=== PATIENT | female | born 1985 | race Two or more races ===

== ENCOUNTER 2017-05-14 07:08 | Emergency (ER) | payer MEDICAID, OTHER ==
[~2017-05-14] VITALS: Ht 157.5 cm; Wt 40.8 kg
[2017-05-14 07:52] VITALS: BP 85/63
[2017-05-14] MEDS ORDERED: SODIUM CHLORIDE 0.9% 1,000 ML IV ONE ×2 (08:42)
[2017-05-14] MEDS ORDERED: LORazepam 2MG/ML-1ML VIAL IV ONE (10:15)
== END 2017-05-14 11:18 | disposition home or self-care (01) ==
LOC: EDUNIT# 07:08 → ER 07:08
DX: R56.9 Unspecified convulsions (principal); Z86.73 Personal history of transient ischemic attack (TIA), and cerebral infarction without residual deficits; Z90.89 Acquired absence of other organs
CPT/HCPCS: 71010; 82962; 96361; 96374; 99285; J7030

== ENCOUNTER 2017-09-22 10:48 | Emergency (ER) | payer MEDICAID ==
[~2017-09-22] VITALS: Ht 162.6 cm; Wt 43.7 kg
[2017-09-22 14:58] VITALS: BP 102/68
== END 2017-09-22 15:11 | disposition home or self-care (01) ==
LOC: ER 10:53
DX: S86.819A Strain of other muscle(s) and tendon(s) at lower leg level, unspecified leg, initial encounter (principal); Z88.1 Allergy status to other antibiotic agents; W19.XXXA Unspecified fall, initial encounter; Y93.89 Activity, other specified; Y99.8 Other external cause status; Y92.89 Other specified places as the place of occurrence of the external cause
CPT/HCPCS: 72170; 73562

== ENCOUNTER 2017-11-14 21:35 | Inpatient (IN) | payer MEDICAID ==
[~2017-11-14] VITALS: Ht 170.2 cm; Wt 45.4 kg
[2017-11-14] MEDS ORDERED: LORazepam 2MG/ML-1ML VIAL IV ONE (22:00)
[2017-11-14 22:39] LABS: Basophils # (auto) 0 uL; Basophils % (auto) 0.6 % (0.0-2.0); Eosinophils # (auto) 0.1 uL; Eosinophils % (auto) 0.8 % (0.0-7.0); Hemoglobin 13.2 g/dL (12.2-16.2); Lymphocytes # (auto) 0.8 uL; Monocytes # (auto) 0.4 uL; Monocytes % (auto) 4.6 % (0.0-12.0); Neutrophils # (auto) 6.5 uL; Nucleated Red Blood Cells % 0.1 %; Red Blood Cells 4.08 10^6/uL (4.0-5.20); White Blood Cell 7.7 10^3/uL (4.4-10.8)
[2017-11-14 22:40] LABS: Hematocrit 38.4 % (36.0-46.0); Mean Corpuscular Hemoglobin 32.3 pg (28.0-32.0); Mean Corpuscular Hgb Conc. 34.3 g/dL (32.0-36.0); Mean Corpuscular Volume 93.9 fL (80.0-100.0); Platelet Count (auto) 334 10^3/uL (140-450); Red Cell Distribution Width 12.8 % (11.8-14.3)
[2017-11-14 23:03] LABS: INR 1.07 (0.9-1.15); Partial Thromboplastin Time 26.4 sec (23.78-33.04); Prothrombin Time 11.4 sec (9.27-12.13)
[2017-11-14 23:04] LABS: Albumin 3.5 g/dL (3.4-5.0); BUN/Creatinine Ratio 12.7; Bilirubin, Total 0.2 mg/dL (0.2-1.0); Calcium 9.5 mg/dL (8.5-10.1); Total Protein 7.9 g/dL (6.4-8.2)
[2017-11-14 23:09] LABS: Potassium 2.9 mmol/L (3.5-5.1)
[2017-11-14] MEDS ORDERED: POTASSIUM CHL 20 Meq TABLET PO ONE ×2 (23:24→23:30)
[2017-11-14] MEDS ORDERED: POTASSIUM CHL 20MEQ/100ML 100 ML IV SCH (23:30)
[2017-11-14] MEDS ORDERED: POTASSIUM CHL 10% (20 MEQ/15ML) 15ml ORAL SOLN ONE (23:37)
[2017-11-14] MEDS ORDERED: POTASSIUM CHL 10% (20 MEQ/15ML) 15ml ORAL SOLN GT ONE (23:45)
[2017-11-15] MEDS ORDERED: TEMAZEPAM 15 MG CAP PO PRN
[2017-11-15] MEDS ORDERED: ONDANSETRON HCL 4 MG/2 ML VIAL IV PRN
[2017-11-15] MEDS ORDERED: HYDROcodone-ACET 5/325MG TAB PO PRN
[2017-11-15] MEDS ORDERED: NITROGLYCERIN 0.4 MG SL TAB SL PRN
[2017-11-15] MEDS ORDERED: ACETAMINOPHEN 325 MG TAB PO PRN
[2017-11-15] MEDS ORDERED: MORPHINE SULFATE 4 MG/ML SYR/VIAL IV PRN
[2017-11-15 02:05] VITALS: BP 100/75
[2017-11-15 02:37] VITALS: BP 100/75
[2017-11-15] MEDS ORDERED: KEP500T PO (03:46)
[2017-11-15] MEDS ORDERED: CEFT1INJ IV (03:46)
[2017-11-15] MEDS ORDERED: CHL4PW GT (03:46)
[2017-11-15] MEDS ORDERED: METR500T PO (03:46)
[2017-11-15] MEDS ORDERED: POTA20TA53 PO (03:46)
[2017-11-15] MEDS ORDERED: LEVO50TA7 PO (03:46)
[2017-11-15] MEDS ORDERED: PANC12002 PO (03:46)
[2017-11-15] MEDS ORDERED: MAGN400T5 PO (03:46)
[2017-11-15] MEDS ORDERED: METR500T14 PO (03:46)
[2017-11-15] MEDS ORDERED: CHOL20007 PO (03:46)
[2017-11-15] MEDS ORDERED: LANS30CA63 PO (03:46)
[2017-11-15] MEDS ORDERED: CITA10TA70 PO (03:46)
[2017-11-15] MEDS ORDERED: HYDR200T36 PO (03:46)
[2017-11-15] MEDS ORDERED: [UNRECOGNIZED DRUG - CODE] IV (03:46)
[2017-11-15] MEDS ORDERED: FERR-20 PO (03:46)
[2017-11-15] MEDS ORDERED: CLON1TAB3 PO (03:46)
[2017-11-15] MEDS ORDERED: ZINC TOP (03:46)
[2017-11-15] MEDS ORDERED: ASCO-22 PO (03:46)
[2017-11-15] MEDS ORDERED: MIDO5TAB16 PO (03:54)
[2017-11-15 05:15] VITALS: BP 99/68
[2017-11-15] MEDS ORDERED: LEVOTHYROXINE SODIUM 50 MCG TAB PO SCH (07:00)
[2017-11-15 08:22] LABS: Basophils # (auto) 0 uL; Basophils % (auto) 0.4 % (0.0-2.0); Eosinophils # (auto) 0.1 uL; Eosinophils % (auto) 1.6 % (0.0-7.0); Hematocrit 38.7 % (36.0-46.0); Hemoglobin 13.1 g/dL (12.2-16.2); Lymphocytes % (auto) 13.9 % (10.0-50.0); Mean Corpuscular Hgb Conc. 33.9 g/dL (32.0-36.0); Mean Corpuscular Volume 94.5 fL (80.0-100.0); Monocytes # (auto) 0.4 uL; Neutrophils # (auto) 5.7 uL; Neutrophils % (auto) 78.1 % (37.0-80.0); Nucleated Red Blood Cells % 0.1 %; Platelet Count (auto) 314 10^3/uL (140-450); Red Cell Distribution Width 12.8 % (11.8-14.3); White Blood Cell 7.3 10^3/uL (4.4-10.8)
[2017-11-15 08:41] LABS: Albumin 3.5 g/dL (3.4-5.0); BUN/Creatinine Ratio 11.6; Calcium 9.7 mg/dL (8.5-10.1); Potassium 3.8 mmol/L (3.5-5.1)
[2017-11-15 08:43] LABS: Bilirubin, Total 0.3 mg/dL (0.2-1.0); Total Protein 8.2 g/dL (6.4-8.2)
[2017-11-15 09:00] VITALS: BP 102/72
[2017-11-15] MEDS ORDERED: LACOSAMIDE 50 MG TAB PO SCH (10:00)
[2017-11-15] MEDS ORDERED: LEVETIRACETAM 500 MG TAB PO SCH (10:00)
[2017-11-15] MEDS ORDERED: ENOXAPARIN SOD 40 MG/0.4 ML SYRINGE SC SCH (10:00)
[2017-11-15] MEDS ORDERED: FAMOTIDINE 20 MG TAB PO SCH (10:00)
[2017-11-15 13:00] VITALS: BP 95/68
[2017-11-15] MEDS ORDERED: LORazepam 2MG/ML-1ML VIAL IV PRN (13:45)
[2017-11-15] MEDS ORDERED: SODIUM CHLORIDE 0.9% 1,000 ML IV SCH (14:45)
[2017-11-15 17:00] VITALS: BP 96/69
== END 2017-11-15 22:00 | disposition left against medical advice (07) | DRG 53 ==
LOC: ER 21:35 → EDBD 21:35 → TELE 21:36 → TELE-WESTW 11-15 02:00
PROVIDERS: ADMIT Nurse Practitioner; ATTEND Internal Medicine
PROC: 02HV33Z Insertion of Infusion Device into Superior Vena Cava, Percutaneous Approach (ICD-10-PCS; principal; 2017-11-15)
DX: G40.409 Other generalized epilepsy and epileptic syndromes, not intractable, without status epilepticus (principal); Z93.0 Tracheostomy status; F01.50 Vascular dementia, unspecified severity, without behavioral disturbance, psychotic disturbance, mood disturbance, and anxiety; E03.9 Hypothyroidism, unspecified; E87.6 Hypokalemia; F41.1 Generalized anxiety disorder; Z53.21 Procedure and treatment not carried out due to patient leaving prior to being seen by health care provider; R26.9 Unspecified abnormalities of gait and mobility; G47.00 Insomnia, unspecified; Z93.1 Gastrostomy status; Z79.899 Other long term (current) drug therapy; Z86.73 Personal history of transient ischemic attack (TIA), and cerebral infarction without residual deficits; Z93.3 Colostomy status; Z95.2 Presence of prosthetic heart valve; Z88.1 Allergy status to other antibiotic agents
CPT/HCPCS: 36415; 70450; 71045; 80053; 84484; 85025; 85610; 85730; 93005; 96361; 96374; J3480

== ENCOUNTER 2018-03-04 16:06 | Emergency (ER) | payer MEDICAID ==
[~2018-03-04] VITALS: Ht 157.5 cm; Wt 46.3 kg
[~2018-03-04 16:06] MED LIST: ASCO-22 PO; CEFT1INJ IV; CHL4PW GT; CHOL20007 PO; CITA10TA70 PO; CLON1TAB4 PO; FERR-20 PO; HYDR200T36 PO; KEP500T PO; LANS30CA63 PO; LEVO50TA7 PO; MAGN400T5 PO; METR500T PO; METR500T14 PO; MIDO5TAB PO; PANC12002 PO; POTA20TA53 PO; ZINC TOP; [UNRECOGNIZED DRUG - CODE] IV
[2018-03-04] MEDS: LORazepam 2MG/ML-1ML VIAL IV ONE (17:25)
[2018-03-04 17:32] VITALS: BP 115/80
== END 2018-03-04 17:37 | disposition home or self-care (01) ==
LOC: ER 16:10
DX: R56.9 Unspecified convulsions (principal); M32.9 Systemic lupus erythematosus, unspecified; Z86.73 Personal history of transient ischemic attack (TIA), and cerebral infarction without residual deficits
CPT/HCPCS: 70450; 93005; 96374; 99284; J2060

== ENCOUNTER 2023-07-03 09:02 | Emergency (ER) | payer MEDICARE, MEDICAID ==
[~2023-07-03] VITALS: Ht 162.6 cm; Wt 94.1 kg
[~2023-07-03 09:02] MED LIST changes: -ASCO-22 PO; +ASCO500T16 PO; +CITA10TA5 PO; -CITA10TA70 PO; +CLON-853 PO; -CLON1TAB4 PO; -FERR-20 PO; +FERR325T24 PO; +LANS30CA57 PO; -LANS30CA63 PO; +MAGN400T40 PO; -MAGN400T5 PO; +METR-344 PO; -METR500T14 PO; -MIDO5TAB PO; +MIDO5TAB4 PO; +POTA-220 PO; -POTA20TA53 PO
[2023-07-03 09:53] VITALS: O2SAT 98
[2023-07-03 10:30] LABS: Basophils # (auto) 0 10 ^3/uL (0-0.2); Basophils % (auto) 0.2 % (0.0-2.0); Eosinophils # (auto) 0.1 10 ^3/uL (0-0.8); Eosinophils % (auto) 0.9 % (0.0-7.0); Hematocrit 42.7 % (36.0-46.0); Hemoglobin 14.7 g/dL (12.2-16.2); Lymphocytes # (auto) 1.3 10 ^3/uL (0.4-5.4); Lymphocytes % (auto) 20.5 % (10.0-50.0); Mean Corpuscular Hemoglobin 32.2 pg (28.0-32.0); Mean Corpuscular Hgb Conc. 34.5 g/dL (32.0-36.0); Mean Corpuscular Volume 93.3 fL (80.0-100.0); Monocytes # (auto) 0.3 10 ^3/uL (0-1.3); Monocytes % (auto) 5.4 % (0.0-12.0); Neutrophils # (auto) 4.6 10 ^3/uL (1.6-8.6); Nucleated Red Blood Cells % 0.1 %; Red Blood Cells 4.58 10^6/uL (4.0-5.20); Red Cell Distribution Width 12.6 % (11.8-14.3); White Blood Cell 6.4 10^3/uL (4.4-10.8)
[2023-07-03 10:46] LABS: Chloride 104 mmol/L (98-107); Potassium 4.1 mmol/L (3.5-5.1); Sodium 139 mmol/L (136-145)
[2023-07-03 10:47] LABS: Anion Gap 5 (5-15); Calcium 9.5 mg/dL (8.5-10.1); Carbon Dioxide 30 mmol/L (20-30)
[2023-07-03 10:52] LABS: BUN/Creatinine Ratio 10.8 (10.0-20.0); Blood Urea Nitrogen 9 mg/dL (9-23); Glucose 106 mg/dL (74-106)
[2023-07-03] MEDS ORDERED: levETIRAcetam 1000 mg/100ml 100 ML IV ONE (11:15)
[2023-07-03] MEDS ORDERED: SODIUM CHLORIDE 0.9% 1,000 ML IV ONE (11:15)
[2023-07-03] MEDS ORDERED: LORazepam 2MG/ML-1ML VIAL IV ONE (11:15)
[2023-07-03 13:51] LABS: Urine Epithelial Cast None Seen /hpf (<5)
[2023-07-03 14:07] LABS: Urine Bacteria NONE SEEN /hpf (None Seen); Urine Blood Negative /uL (Negative); Urine Clarity Clear (Clear); Urine Protein, UAD TRACE (Negative); Urine Urobilinogen Normal (Negative); Urine WBC <1 /hpf (0 - 5)
[2023-07-03 14:08] LABS: Urine Color Straw (Yellow)
[2023-07-03 14:29] LABS: Amphetamine Screen, Urine Neg (NEGATIVE); Barbiturate Scree,Urine Neg (NEGATIVE); Benzodiazephine Screen, Urine Pos (NEGATIVE); Cannabinoid Screen, Urine Neg (NEGATIVE); Cocaine Screen, Urine Neg (NEGATIVE); Opiate Scree,Urine Neg (NEGATIVE); Phencyclidine Screen, Urine Neg (NEGATIVE)
[2023-07-03 15:00] VITALS: BP 112/77; PULSE 77; RESP 14; O2SAT 99
== END 2023-07-03 15:12 | disposition home or self-care (01) ==
LOC: EDBD 09:02 → ER 09:02
DX: G40.909 Epilepsy, unspecified, not intractable, without status epilepticus (principal); R10.2 Pelvic and perineal pain; M32.9 Systemic lupus erythematosus, unspecified; I10 Essential (primary) hypertension; R07.89 Other chest pain; Z86.73 Personal history of transient ischemic attack (TIA), and cerebral infarction without residual deficits; Z90.49 Acquired absence of other specified parts of digestive tract
CPT/HCPCS: 36415; 71045; 80048; 80307; 81001; 83735; 84484; 84702; 85025; 96365; 96375; 99284; J1953; J2060; J7030